=== PATIENT | male | born 1980 | race Caucasian/White ===

== ENCOUNTER 2020-05-06 09:25 | Day surgery (SDC) | payer OTHER, SELFPAY ==
[2020-04-30 11:29] VITALS: BMI 22.4
--- NOTE | 2020-05-03 08:40 | HO.ANESPROP2 ---
Documented by User: Jannet Peralta 05/03/20 08:44 HPI - Anesthesia Eval Consult details Narrative: 39yo M for Colonoscopy [facility] Past Medical History Medical History (Updated 04/30/20 @ 11:31 by Taina Jacinto) Hx of cold sores Surgical History Surgical History (Updated 04/30/20 @ 11:31 by Taina Jacinto) No significant past surgical history Social History Social History (Updated 04/30/20 @ 11:33 by Taina Jacinot) Alcohol intake: current Smoking Status: Never smoker Use of substances other than those prescribed or required for medical reasons: Unknown Advance Directives Information Provided: No Meds Allergies Allergy/AdvReac Type Severity Reaction Status Date / Time No Known Allergies Allergy Verified 05/06/20 09:47 Home Medications Medication Instructions Recorded Confirmed Type ibuprofen [Advil] 400 mg PO Q6H PRN 04/30/20 04/30/20 History multivitamin 1 tab PO DAILY 04/30/20 04/30/20 History valacyclovir 04/30/20 History Exam Exam Date and Time: May 03, 2020 0840 Height,Weight and Vital Signs: Height 6 ft Weight 74.843 kg Assessment and Plan Assessment Anesthesia Assessment: Chart Reviewed Documented by User: Tammie Burton 05/06/20 10:51 [facility] Past Medical History Medical History (Updated 04/30/20 @ 11:31 by Taina Jacinto) Hx of cold sores Surgical History Surgical History (Updated 04/30/20 @ 11:31 by Taina Jacinto) No significant past surgical history Social History Social History (Updated 04/30/20 @ 11:33 by Taina Jacinto) Alcohol intake: current Smoking Status: Never smoker Use of substances other than those prescribed or required for medical reasons: Unknown Advance Directives Information Provided: No Meds Allergies Allergy/AdvReac Type Severity Reaction Status Date / Time No Known Allergies Allergy Verified 05/06/20 09:47 Home Medications Medication Instructions Recorded Confirmed Type ibuprofen [Advil] 400 mg PO Q6H PRN 04/30/20 04/30/20 History multivitamin 1 tab PO DAILY 04/30/20 04/30/20 History valacyclovir 04/30/20 History Exam Airway Mallampati Class: II TM Dist: >3cm Neck ROM: Full Heart: RRR Lungs: CTA BL Assessment and Plan Assessment Anesthesia Assessment: Anesthesia Plan Discussed and Chart Reviewed Final Anesthetic Review NPO: Yes ASA Class: I Final Preanesthetic Review: No Changes in Pt Med Stat, Meds/Allgs Chart Reviewed and Consent Obtained/Reviewed Patient Risk: Intermediate Procedure Risk: Intermediate Anesthetic Plan Anesthetic Plan: MAC: Disposition: Standard PACU
[2020-05-06 10:01] VITALS: BP 133/70; PULSE 57; RESP 16; TEMP 36.9; O2SAT 98
[2020-05-06] MEDS: Lactated Ringers 1,000 ML 100 ML IVCONT (10:21)
[2020-05-06 11:50] VITALS: BP 92/44; PULSE 59; RESP 16; TEMP 36.3; O2SAT 97
--- NOTE | 2020-05-06 11:50 | PM.OP ---
Brief Operative Note Date of Service: 05/06/20 Pre-op diagnosis: Family history of colon cancer, Screening Post-op diagnosis: other (Normal exam) Procedure: Colonoscopy to the cecum and TI Surgeon: Nathen Park Anesthesia: MAC Estimated blood loss (mL): 0 Pathology: none sent Condition: stable Disposition: PACU
[2020-05-06 12:05] VITALS: BP 114/68; PULSE 50; RESP 16; TEMP 36.3; O2SAT 99
--- NOTE | 2020-05-06 12:14 | OP_ITS ---
SURGEON: Nathen Park MD INDICATIONS: The patient presents for evaluation of colorectal cancer screening and family history of colon cancer in his father in his mid 50s. Full consent has been obtained from him for this, including risks of bleeding and perforation. PREOPERATIVE DIAGNOSIS: POSTOPERATIVE DIAGNOSIS: PROCEDURE PERFORMED: Colonoscopy to the cecum and terminal ileum. ESTIMATED BLOOD LOSS: COMPLICATIONS: ANESTHESIA: Monitored anesthesia care. ASSISTANTS: SPECIMENS: PREOPERATIVE DIAGNOSES: Family history of colon cancer and colorectal cancer screening. POSTOPERATIVE DIAGNOSES: Family history of colon cancer and colorectal cancer screening, normal colonoscopy. DESCRIPTION OF PROCEDURE: The patient was placed in the left lateral decubitus position. The digital rectal exam revealed no abnormalities. The Olympus video pediatric colonoscope was entered into the rectum and advanced easily to the cecum. Once in the cecum, I did identify normal-appearing cecal pouch with appendiceal orifice and a normal-appearing ileocecal valve. The terminal ileum was cannulated and appeared normal. The scope was withdrawn back in the colon. The entire cecum and ileocecal valve appeared normal. The scope was slowly withdrawn assessing all mucosal surfaces carefully. Preparation was excellent. I did not visualize any sign of polyps, colitis, nor angiodysplasia. In the rectum, scope was retroflexed visualizing normal rectal mucosa, but no pathology. The scope was straightened and withdrawn from the patient. He tolerated the procedure well and was returned to recovery area in stable condition. IMPRESSION: Normal colonoscopy to the cecum and terminal ileum. PLAN: Given his family history, I would recommend a followup colonoscopy in 5 years for further screening. He will otherwise see me on a p.r.n. basis. This has been discussed with his . MD VLADIMIR Schmidt/DAVIDL / [id number]
== END 2020-05-06 12:42 | disposition home or self-care (01) ==
PROVIDERS: PCP Internal Medicine; Visit Provider Internal Medicine
PROC: 0DJD8ZZ Inspection of Lower Intestinal Tract, Via Natural or Artificial Opening Endoscopic (ICD-10-PCS; CPT 45378; principal; 2020-05-06 11:10)
DX: Z12.11 Encounter for screening for malignant neoplasm of colon (principal); Z80.0 Family history of malignant neoplasm of digestive organs
CPT/HCPCS: 45378

== ENCOUNTER 2021-01-07 10:40 | Outpatient (REF) | payer OTHER, SELFPAY ==
[2021-01-07 10:42] LABS: MANUAL DIFF FLAG NO
[2021-01-07 11:13] LABS: Basophils Percent Auto 0.6 % (0-2); Eosinophils Absolute Auto 0.2 X10*3/uL (0.0-0.4); Eosinophils Percent Auto 3.4 % (0-4); Hematocrit 42.3 % (42-52); Imm Gran Abs Auto 0.01 X10*3/uL (0.00-0.03); Imm Gran Pct Auto 0.2 % (0.0-0.4); Lymphocytes Absolute Auto 1.4 X10*3/uL (1.2-4.9); Lymphocytes Percent Auto 29.2 % (20-40); Mean Corpuscular HGB Conc 35.5 g/dl (31.0-36.0); Mean Corpuscular Hemoglobin 30.3 pg (27.0-33.0); Mean Corpuscular Volume 85.5 fL (80-98); Mean Platelet Volume 10.6 fL (9.4-12.4); Monocytes Absolute Auto 0.4 X10*3/uL (0.1-1.2); Monocytes Percent Auto 7.5 % (2-11); Neutrophils Absolute Auto 2.8 X10*3/uL (2.0-8.3); Neutrophils Percent Auto 59.1 % (45-73); Platelet Count 218 X10*3/uL (160-400); Red Blood Count 4.95 X10*6/uL (4.60-5.80); Red Cell Distribution Width 11.9 % (11.0-16.0); White Blood Count 4.7 X10*3/uL (4.8-10.8)
[2021-01-07 11:33] LABS: Alanine Aminotransferase 29 U/L (0-40); Albumin Level 4.3 g/dL (3.5-5.0); Alkaline Phosphatase 55 U/L (39-117); Anion Gap 9 (12-20); Aspartate Amino Transferase 18 U/L (5-37); Bilirubin Total 0.9 mg/dL (0.0-1.0); Blood Urea Nitrogen 17 mg/dL (9-16); Carbon Dioxide 28 mmol/L (22-29); Chloride 106 mmol/L (96-108); Cholesterol 168 mg/dL; Estimated Glomerular Filt Rate > 60; Glucose Fasting 107 mg/dL (60-99); HDL Cholesterol 45 mg/dL; LDL Cholesterol Calculated 90 mg/dl; Potassium 4.2 mmol/L (3.3-5.1); Sodium 139 mmol/L (135-145); Total Protein 6.8 g/dL (6.5-8.0); Triglycerides 168 mg/dL
[2021-01-07 11:43] LABS: Appearance Urine CLEAR; Color Urine YELLOW; Glucose Urine UA NEG (NEG); Leukocyte Esterase Urine NEG (NEG); Nitrite Urine NEG (NEG); Urine Blood NEG (NEG); Urine Ketones NEG (NEG); Urine Protein NEG (NEG-TRACE)
[2021-01-07 11:52] LABS: PSA,Total (Free>4and<10) 0.48 ng/mL (0.00-4.00)
== END 2021-01-07 10:41 | disposition home or self-care (01) ==
LOC: HO.LNP 10:40
PROVIDERS: Visit Provider Internal Medicine
DX: Z00.00 Encounter for general adult medical examination without abnormal findings (principal); Z12.5 Encounter for screening for malignant neoplasm of prostate; R80.9 Proteinuria, unspecified
CPT/HCPCS: 80053; 80061; 81003; 84153; 85025

== ENCOUNTER 2022-01-09 12:33 | Outpatient (REF) | payer BC, SELFPAY ==
[2022-01-09 12:40] LABS: MANUAL DIFF FLAG NO
[2022-01-09 12:44] LABS: Appearance Urine Clear; Basophils Percent Auto 0.8 % (0-2); Color Urine Yellow; Eosinophils Absolute Auto 0.2 X10*3/uL (0.0-0.4); Glucose Urine UA Negative (Negative); Hematocrit 45.3 % (42.0-52.0); Hemoglobin 15.7 g/dl (14.0-18.0); Imm Gran Abs Auto 0.01 X10*3/uL (0.00-0.03); Imm Gran Pct Auto 0.2 % (0.0-0.4); Leukocyte Esterase Urine Negative (Negative); Lymphocytes Absolute Auto 1.8 X10*3/uL (1.2-4.9); Lymphocytes Percent Auto 36.5 % (20-40); Mean Corpuscular HGB Conc 34.7 g/dl (31.0-36.0); Mean Corpuscular Hemoglobin 30.1 pg (27.0-33.0); Mean Corpuscular Volume 86.8 fL (80.0-98.0); Monocytes Absolute Auto 0.5 X10*3/uL (0.1-1.2); Neutrophils Absolute Auto 2.5 x10*3/uL (2.0-8.3); Neutrophils Percent Auto 49.5 % (45-73); Nitrite Urine Negative (Negative); PH 7.5 (5.0-9.0); Platelet Count 251 X10*3/uL (160-400); Red Blood Count 5.22 X10*6/uL (4.60-5.80); Red Cell Distribution Width 11.9 % (11.0-16.0); Urine Blood Negative (Negative); Urine Ketones Negative (Negative); Urine Protein Negative (Neg-Trace)
[2022-01-09 12:47] LABS: Bacteria Urine None Seen (None Seen); Hyaline Casts Urine 0-2 /LPF (0-2); RBC Urine 0-2 /HPF (0-2); Squamous Epithelial Cell Urine 0-2 /HPF (0-2); WBC Urine 0-5 /HPF (0-5)
[2022-01-09 12:57] LABS: Alanine Aminotransferase 37 U/L (0-40); Albumin Level 4.5 g/dL (3.5-5.0); Alkaline Phosphatase 60 U/L (39-117); Anion Gap 15 (12-20); Aspartate Amino Transferase 29 U/L (5-37); Bilirubin Total 1.3 mg/dL (0.0-1.0); Blood Urea Nitrogen 20 mg/dL (9-16); Calcium 9.4 mg/dL (8.4-10.2); Carbon Dioxide 28 mmol/L (22-29); Chloride 103 mmol/L (96-108); Cholesterol 174 mg/dL; Estimated Glomerular Filt Rate > 60; Glucose Fasting 101 mg/dL (60-99); HDL Cholesterol 45 mg/dL; LDL Cholesterol Calculated 102 mg/dl; Potassium 4.5 mmol/L (3.3-5.1); Sodium 141 mmol/L (135-145); Total Protein 7.1 g/dL (6.5-8.0); Triglycerides 137 mg/dL
[2022-01-09 13:16] LABS: PSA,Total (Free>4and<10) 0.38 ng/mL (0.00-4.00)
== END 2022-01-09 12:34 | disposition home or self-care (01) ==
LOC: HO.LNP 12:33
PROVIDERS: Visit Provider Internal Medicine
DX: Z00.00 Encounter for general adult medical examination without abnormal findings (principal); Z12.5 Encounter for screening for malignant neoplasm of prostate
CPT/HCPCS: 80053; 80061; 81001; 84153; 85025

== ENCOUNTER 2023-01-25 10:53 | Outpatient (REF) | payer BC, SELFPAY ==
[2023-01-25 10:57] LABS: MANUAL DIFF FLAG NO
[2023-01-25 11:12] LABS: Basophils Percent Auto 0.7 % (0-2); Eosinophils Absolute Auto 0.1 X10*3/uL (0.0-0.4); Eosinophils Percent Auto 2.2 % (0-4); Hemoglobin 15.7 g/dl (14.0-18.0); Imm Gran Abs Auto 0.01 X10*3/uL (0.00-0.03); Imm Gran Pct Auto 0.2 % (0.0-0.4); Lymphocytes Absolute Auto 1.4 X10*3/uL (1.2-4.9); Lymphocytes Percent Auto 24.8 % (20-40); Mean Corpuscular HGB Conc 34.1 g/dl (31.0-36.0); Mean Corpuscular Hemoglobin 29.5 pg (27.0-33.0); Mean Corpuscular Volume 86.3 fL (80.0-98.0); Mean Platelet Volume 10.8 fL (9.4-12.4); Monocytes Absolute Auto 0.5 X10*3/uL (0.1-1.2); Monocytes Percent Auto 9.2 % (2-11); Neutrophils Absolute Auto 3.4 x10*3/uL (2.0-8.3); Neutrophils Percent Auto 62.9 % (45-73); Platelet Count 220 X10*3/uL (160-400); Red Blood Count 5.33 X10*6/uL (4.60-5.80); Red Cell Distribution Width 11.9 % (11.0-16.0); White Blood Count 5.4 X10*3/uL (4.8-10.8)
[2023-01-25 11:13] LABS: Appearance Urine Clear; Color Urine Yellow; Glucose Urine UA Negative (Negative); Leukocyte Esterase Urine Negative (Negative); Nitrite Urine Negative (Negative); Specific Gravity - Urine 1.015 (1.005-1.025); Urine Blood Negative (Negative); Urine Ketones Negative (Negative); Urine Protein Negative (Neg-Trace)
[2023-01-25 11:15] LABS: Bacteria Urine None Seen (None Seen); Hyaline Casts Urine 0-2 /LPF (0-2); RBC Urine 0-2 /HPF (0-2); Squamous Epithelial Cell Urine 0-2 /HPF (0-2); WBC Urine 0-5 /HPF (0-5)
[2023-01-25 11:38] LABS: Alanine Aminotransferase 33 U/L (0-40); Albumin Level 4.5 g/dL (3.5-5.0); Alkaline Phosphatase 64 U/L (39-117); Anion Gap 13 (12-20); Aspartate Amino Transferase 24 U/L (5-37); Bilirubin Total 1.2 mg/dL (0.0-1.0); Blood Urea Nitrogen 15 mg/dL (9-16); Calcium 9.7 mg/dL (8.4-10.2); Carbon Dioxide 28 mmol/L (22-29); Chloride 104 mmol/L (96-108); Cholesterol 172 mg/dL (<200); Estimated Glomerular Filt Rate > 60; Glucose Fasting 105 mg/dL (60-99); HDL Cholesterol 51 mg/dL (>40); LDL Cholesterol Calculated 96 mg/dL (<100); Potassium 4.5 mmol/L (3.3-5.1); Sodium 140 mmol/L (135-145); Total Protein 7.2 g/dL (6.5-8.0); Triglycerides 128 mg/dL (<150)
[2023-01-25 11:48] LABS: PSA,Total (Free>4and<10) 0.48 ng/mL (0.00-4.00)
== END 2023-01-25 10:54 | disposition home or self-care (01) ==
LOC: HO.LNP 10:53
PROVIDERS: Visit Provider Internal Medicine
DX: Z00.00 Encounter for general adult medical examination without abnormal findings (principal); Z12.5 Encounter for screening for malignant neoplasm of prostate; Z20.2 Contact with and (suspected) exposure to infections with a predominantly sexual mode of transmission
CPT/HCPCS: 80053; 80061; 81001; 84153; 85025

== ENCOUNTER 2024-02-07 11:33 | Outpatient (REF) | payer BC, SELFPAY ==
[2024-02-07 11:35] LABS: MANUAL DIFF FLAG NO
[2024-02-07 11:52] LABS: Basophils Percent Auto 0.8 % (0-2); Eosinophils Absolute Auto 0.2 X10*3/uL (0.0-0.4); Eosinophils Percent Auto 3.4 % (0-4); Hematocrit 45.1 % (42.0-52.0); Hemoglobin 15.5 g/dl (14.0-18.0); Imm Gran Abs Auto 0.01 X10*3/uL (0.00-0.03); Imm Gran Pct Auto 0.2 % (0.0-0.4); Lymphocytes Absolute Auto 1.6 X10*3/uL (1.2-4.9); Lymphocytes Percent Auto 32.1 % (20-40); Mean Corpuscular HGB Conc 34.4 g/dl (31.0-36.0); Mean Corpuscular Hemoglobin 29.9 pg (27.0-33.0); Mean Corpuscular Volume 86.9 fL (80.0-98.0); Mean Platelet Volume 10.7 fL (9.4-12.4); Monocytes Absolute Auto 0.4 X10*3/uL (0.1-1.2); Monocytes Percent Auto 7.9 % (2-11); Neutrophils Absolute Auto 2.8 x10*3/uL (2.0-8.3); Neutrophils Percent Auto 55.6 % (45-73); Platelet Count 244 X10*3/uL (160-400); Red Blood Count 5.19 X10*6/uL (4.60-5.80); Red Cell Distribution Width 12.1 % (11.0-16.0)
[2024-02-07 11:56] LABS: Appearance Urine Clear; Color Urine Yellow; Glucose Urine UA Negative (Negative); Leukocyte Esterase Urine Negative (Negative); Nitrite Urine Negative (Negative); PH 5.5 (5.0-9.0); Specific Gravity - Urine 1.015 (1.005-1.025); Urine Blood Negative (Negative); Urine Ketones Negative (Negative); Urine Protein Negative (Neg-Trace)
[2024-02-07 12:02] LABS: Bacteria Urine None Seen (None Seen); Hyaline Casts Urine 0-2 /LPF (0-2); RBC Urine 0-2 /HPF (0-2); Squamous Epithelial Cell Urine 0-2 /HPF (0-2); WBC Urine 0-5 /HPF (0-5)
[2024-02-07 13:05] LABS: PSA,Total (Free>4and<10) 0.48 ng/mL (0.00-4.00)
[2024-02-07 13:16] LABS: Alanine Aminotransferase 41 U/L (0-40); Albumin Level 4.4 g/dL (3.5-5.0); Alkaline Phosphatase 64 U/L (39-117); Anion Gap 12 (12-20); Aspartate Amino Transferase 36 U/L (5-37); Bilirubin Total 0.7 mg/dL (0.0-1.0); Blood Urea Nitrogen 17 mg/dL (9-16); Calcium 9.5 mg/dL (8.4-10.2); Carbon Dioxide 28 mmol/L (22-29); Chloride 105 mmol/L (96-108); Cholesterol 188 mg/dL (<200); Estimated Glomerular Filt Rate > 60; Glucose Fasting 103 mg/dL (60-99); HDL Cholesterol 55 mg/dL (>40); LDL Cholesterol Calculated 109 mg/dL (<100); Potassium 4.4 mmol/L (3.3-5.1); Sodium 141 mmol/L (135-145); Triglycerides 120 mg/dL (<150)
== END 2024-02-07 11:34 | disposition home or self-care (01) ==
LOC: HO.LNP 11:33
PROVIDERS: Visit Provider Internal Medicine
DX: Z00.00 Encounter for general adult medical examination without abnormal findings (principal); Z12.5 Encounter for screening for malignant neoplasm of prostate
CPT/HCPCS: 80053; 80061; 81001; 84153; 85025

== ENCOUNTER 2025-02-09 12:30 | Outpatient (REF) | payer BC, SELFPAY ==
--- OUTSIDE RECORDS SUMMARY | 2024-02-07 02:00 | XMS_ITS ---
Author Organization Lj Ledezma MD Address [address] [place], [place] [id number] Care Team Providers Care [employer] Supervisor Name Role Phone Lj Ledezma Primary Care Provider Results Component Value Reference Range Notes Complete Blood Count Auto Di ff Reviewed date:02/07/2024 05:57:01 PM Interpretation: Performing Lab:[facility], [address] [place] [phone] Notes/Report: White Blood Count 5.0 4.8-10.8 X10*3/uL Red Blood Count 5.19 4.60-5.80 X10*6/uL Hemoglobin 15.5 14.0-18.0 g/dl Hematocrit 45.1 42.0-52.0 % Mean Corpuscular Volume 86.9 80.0-98.0 fL Mean Corpuscular Hemoglobin 29.9 27.0-33.0 pg Mean Corpuscular HGB Conc 34.4 31.0-36.0 g/dl Red Cell Distribution Width 12.1 11.0-16.0 % Platelet Count 244 160-400 X10*3/uL Mean Platelet Volume 10.7 9.4-12.4 fL Neutrophils Percent Auto 55.6 45-73 % Imm Gran Pct Auto 0.2 0.0-0.4 % Lymphocytes Percent Auto 32.1 20-40 % Monocytes Percent Auto 7.9 2-11 % Eosinophils Percent Auto 3.4 0-4 % Basophils Percent Auto 0.8 0-2 % NRBC Pct Auto 0.0 0.0-0.2 /100WBC Neutrophils Absolute Auto 2.8 2.0-8.3 x10*3/u L Imm Gran Abs Auto 0.01 0.00-0.03 X10*3/uL Lymphocytes Absolute Auto 1.6 1.2-4.9 X10*3/u L Monocytes Absolute Auto 0.4 0.1-1.2 X10*3/uL Eosinophils Absolute Auto 0.2 0.0-0.4 X10*3/u L Basophils Absolute Auto 0.0 0.0-0.2 X10*3/uL NRBC Abs Auto 0.000 0.0-0.012 X10*3/uL Comprehensive [place]. Panel Fa st Reviewed date:02/07/2024 05:56:26 PM Interpretation: Performing Lab:[facility], [address] [place] [phone] Notes/Report: Sodium 141 135-145 mmol/L Potassium 4.4 3.3-5.1 mmol/L Chloride 105 96-108 mmol/L Carbon Dioxide 28 22-29 mmol/L Anion Gap 12 12-20 Blood Urea Nitrogen 17 9-16 mg/dL Creatinine 1.03 0.5-1.4 mg/dL Estimated Glomerular Filt Rate > 60 NOTE: For -French individuals, multiply the result by 1.210. Chronic Kidney Disease: Estimated GFR < 60 mL/min/1.73m2 Severe Kidney Disease: Estimated GFR < 15 mL/min/1.73m2 Glucose Fasting 103 60-99 mg/dL A fasting glucose from 100-125 mg/dl is considered impaired (pre-diabetes). Calcium 9.5 8.4-10.2 mg/dL Bilirubin Total 0.7 0.0-1.0 mg/dL Aspartate Amino Transferase 36 5-37 U/L Alanine Aminotransferase 41 0-40 U/L Total Protein 7.0 6.5-8.0 g/dL Albumin Level 4.4 3.5-5.0 g/dL Alkaline Phosphatase 64 39-117 U/L Lipid Panel Reviewed date:02/07/2024 05:49:08 PM Interpretation: Performing Lab:[facility], [address] [place] [phone] Notes/Report: Triglycerides 120 <150 mg/dL Desirable Triglyceride: less than 150 mg/dL Borderline High Triglyceride 150-199 mg/dL High Triglyceride: 200-499 mg/dL Very High Triglyceride: greater than or equal to 5OO mg/dL Cholesterol 188 <200 mg/dL Desirable Cholesterol: less than 200 mg/dL Borderline High Cholesterol: 200-239 mg/dL High Cholesterol: greater than 239 mg/dL LDL Cholesterol Calculated 109 <100 mg/dL Desirable LDL: less than 100 mg/dL Near Optimal/Above Optimal LDL: 110-129 mg/dL Borderline High LDL: 130-159 mg/dL High LDL: 160-189 mg/dL Very High LDL: greater than or equal to 190 mg/dL HDL Cholesterol 55 >40 mg/dL Desirable HDL: greater than 40 mg/dL Note: This HDL assay may give artificially low results in patients with liver disease. PSA,Total (Free>4and<10) Reviewed date:02/07/2024 03:00:37 PM Interpretation: Performing Lab:[facility], [address] [place] [phone] Notes/Report: PSA,Total (Free>4and<10) 0.48 0.00-4.00 ng/mL A Free PSA was not performed: The percentage of Free PSA can be used to enhance the differentiation of prostate cancer from benign prostatic disease in subjects whose PSA levels are between 4.0 and 10.0 ng/mL. For subjects whose PSA levels are below 4.0 or above 10.0 ng/mL, the risk of prostate cancer is determined on the basis of the PSA alone. Therefore the % Free PSA is recommended only for those subjects whose PSA levels are between 4.0 and 10.0 ng/mL. PSA methodology: Rojas Alinity i Chemiluminescent Microparticle Immunoassay (CMIA) UA ClnCatch+Micro w/rflx Cul t Reviewed date:02/07/2024 01:04:59 PM Interpretation: Performing Lab:[facility], [address] [place] [phone] Notes/Report: Urine, Clean Catch Color Urine Yellow Appearance Urine Clear PH 5.5 5.0-9.0 Glucose Urine UA Negative Negative mg/dL Urine Blood Negative Negative Specific [place] - Urine 1.015 1.005-1.025 Urine Protein Negative Neg-Trace mg/dL Urine Ketones Negative Negative mg/dL Nitrite Urine Negative Negative Leukocyte Esterase Urine Negative Negative RBC Urine 0-2 0-2 /HPF WBC Urine 0-5 0-5 /HPF Squamous Epithelial Cell Urine 0-2 0-2 /HPF Bacteria Urine None Seen None Seen Hyaline Casts Urine 0-2 0-2 /LPF REASON FOR VISIT fasting labs Immunizations Vaccine Route Administration Date Status Comme nts Fluarix Quadrivalent - 150 Unknown 02/07/2024 Refused Encounters Encounter Location Date Provider Diagnosis Lj Ledezma MD [address] [place] [phone] 02/07/2024 Lj Ledezma Blood tests for routine general physical examination Z00.00 Assessments Encounter Date Diagnosis (ICD Code) Assessment Notes Treatment Notes Treatment Clinical Notes Section Notes 02/07/2024 Blood tests for routine general physical examination (ICD-10 - Z00.00) Plan Of Treatment Next Appt Details Provider Name:Lj Butler ier, 02/15/2025 08:30:00 AM, [address], [address], [place], [place], [phone], Progress Notes * DEMOND ACOSTA RDOB:12/1980 (44 yo M)Acc No.[id number]:02/07/2024 Progress Note Patient: DEMOND THOMAS Provider: Yancy Ledezma MD :1980 A ge:43 Y S ex:Male Date:02/07/2024 Address:[address] [place] [address], [place] [facility] Subjective: * Chief Complaints: * 1 . Fasting labs. * Medical History: Objective: * Vitals: Assessment: * Assessment: 1. B lood tests for routine general physical examination - Z00.00 (Primary) Plan: * Treatment: * Immunizations: Fluarix Quadrivalent - 150 (Not administered - Refused: Patient decision) * Procedure Codes: 3 6415 VENIPUNCT, ROUTINE* * * The named appointment provid er may or may not be the originator of this progress note, and it is not deemed complete until electronically signed by the appointment provider. Sign off status: Pending * Provider: Yancy Ledezma MD Date: 04/08/2023 Generated for Eduard Rosas/Favio on: 04/11/2024 02:41 PM EST
--- OUTSIDE RECORDS SUMMARY | 2024-02-10 03:00 | XMS_ITS ---
Author Organization Lj Ledezma MD Address [address] [place], [place] [id number] Care Team Providers Care Armed Security Officer Name Role Phone Lj Ledezma Primary Care Provider [phone] Allergies No Known Allergies Results Component Value Reference Range Notes Occult Blood, Stool, Guaiac Reviewed date:02/10/2024 11:27:52 AM Interpretation:Negative Performing Lab: Notes/Report: Negative Occult Blood, Stool, Guaiac Neg REASON FOR VISIT annual visit Medications Medication SIG (Take, Route, Fr equency, Duration) Notes Start Date End Date Status Drysol 20 % 1 application at bed time Externally daily until sweating stops for 30 days 01/19/2022 Activ e valACYclovir HCl 1 GM TAKE 2 TABLETS BY MOUTH EVERY 12 HOURS FOR 1 DAY for 1 Active Social History Tobacco Use: Social History Observation Description Date Details (start date - stop date) Never Smoker NA - NA Tobacco Use/Smoking Question Answer Notes Patient is a nonsmoker Additional Findings: Tobacco Non-User Cu rrent non-smoker, currently using no form of tobacco Alcohol Screen Question Answer Notes Did you have a drink contain ing alcohol in the past year? Yes How often did you have a dri nk containing alcohol in the past year? Monthly or less (1 point) How many drinks did you have on a typical day when you were drinking in the past year? 1 or 2 drinks (0 point) How often did you have 6 or more drinks on one occasion in the past year? Never (0 point) Points 1 Interpretation Negative Vital Signs Blood pressure systolic 124 mm Hg 02/10/20 24 Blood pressure diastolic 72 mm Hg 024 Height 71.5 in 02/10/2024 Weight 192 lbs 02/10/2024 BMI 26.40 kg/m2 02/10/2024 weight is down 2 pounds [facility] summer 02-01-23 Encounters Encounter Location Date Provider Diagnosis Lj Ledezma MD [address] [place], [place] [phone] 02/10/2024 Lj Ledezma Annual physical exam Z00.00 ; Elevated blood sugar R73.9 ; Colon cancer screening Z12.11 and Depression screening Z13.31 Assessments Encounter Date Diagnosis (ICD Code) Assessment Notes Treatment Notes Treatment Clinical Notes Section Notes 02/10/2024 Annual physical exam (ICD-10 - Z00.00) labs reviewed and discused with patient 02/10/2024 Elevated blood sugar (ICD-10 - R73.9) maintain a good weioght and contiue with exercise 02/10/2024 Colon cancer screening (ICD-10 - Z12.11) guaiac negative 02/10/2024 Depression screening (ICD-10 - Z13.31) negative screen Plan Of Treatment Treatment Notes Assessment Notes Annual physical exam labs reviewed and d iscused with patient Elevated blood sugar maintain a good tiarra oght and contiue with exercise Colon cancer screening guaiac negative Depression screening negative screen Next Appt Details Provider Name:Lj Butler ier, 02/15/2025 08:30:00 AM, [address], [address], [place], [place], [id number], Progress Notes * DEMOND ACOSTA RDOB:12/1980 (43 yo M)Acc No.[id number]:02/10/2024 Progress Notes Patient: DEMOND THOMAS Provider: Yancy Ledezma MD :1980 A ge:43 Y S ex:Male Date:02/10/2024 Address:[address] [place] [address] [facility] [place], [id number] Subjective: * Chief Complaints: * A nnual visit * HPI: D epression Screening: PHQ-9 L ittle interest or pleasure in doing things N ot at all, F eeling down, depressed, or hopeless N ot at all, T rouble falling or staying asleep, or sleeping too much N ot at all, F eeling tired or having little energy N ot at all, P oor appetite or overeating N ot at all, F eeling bad about yourself or that you are a failure, or have let yourself or your family down N ot at all, T rouble concentrating on things, such as reading the newspaper or watching television N ot at all, M oving or speaking so slowly that other people could have noticed; or the opposite, being so fidgety or restless that you have been moving around a lot more than usual N ot at all, T houghts that you would be better off or of hurting yourself in some way N ot at all, T otal Score 0 . I nterpretation and Intervention D epression Screening Findings N egative, F ollow-Up for Depression : review of PHQ-9 found negative result, no follow-up needed. C ommunication Needs: Communication Needs D oes the patient have a hearing impairment N o, D oes the patient have a vision impairment? N o, D oes the patient have a cognition impairment? N o. S AYAAN Questions: SDOH Questions I n the past year have you been worried about losing housing? N o, I n the past year have you or any family members you live with been unable to get any of the following when it was really needed? Check all that apply: N one. S ymptom(s): patient is a 43 yo male here for annual visit with reiew of recent labs and follow up of chronic issues. * ROS: G eneral/Constitutional: Patient denies f atigue , headache. C hange in appetite?denies. C hills d enies. F ever d enies. O phthalmologic: Blurred vision d enies. D ischarge d enies. P ain d enies. E NT: Patient denies d ecreased sense of smell , any loss of taste , sore throat. D ecreased hearing d enies. S ore throat d enies. S wollen glands d enies. E ndocrine: Cold intolerance d enies. E xcessive thirst d enies. H eat intolerance d enies. W eight loss d enies. R espiratory: Cough d enies. S hortness of breath at rest d enies. S hortness of breath with exertion d enies. W heezing d enies. C ardiovascular: Chest pain at rest d enies. C hest pain with exertion?denies. I rregular heartbeat d enies. S hortness of breath d enies. ? G astrointestinal: Abdominal pain d enies. C hange in bowel habits d enies. D iarrhea d enies. N ausea d enies. R ectal bleeding d enies. V omiting d enies . G enitourinary: Blood in urine d enies. D ifficulty urinating d enies. F requent urination d enies. M usculoskeletal: Patient denies m uscle aches. P ainful joints d enies. W eakness d enies. P eripheral Vascular: Patient denies r ed and blue toes. S kin: Dry skin d enies. I tching d enies. D enies?Mole(s), changes in moles, new moles or any lesions of concern. D enies P hotosensitivity. R leo d enies. N eurologic: Dizziness d enies. F ainting d enies. H eadache?denies. * Medical History: * Surgical History: * Hospitalization/Major Diagno stic Procedure: * Family History: F ather: 65 yrs, family history unknown . M other: alive 71 yrs, family history unknown . 1 brother(s) . 3 son(s) . . Denies mental health/substance abuse family history Father colon cancer Mothr healthy, Denies mental health/substance abuse family history, No pertinent family medical history. * Social History: T obacco Use: T obacco Use/Smoking P atient is a n onsmoker, A dditional Findings: Tobacco Non-User C urrent non-smoker, currently using no form of tobacco. D rugs/Alcohol: A lcohol Screen D id you have a drink containing alcohol in the past year? Y es, H ow often did you have a drink containing alcohol in the past year? M onthly or less (1 point), H ow many drinks did you have on a typical day when you were drinking in the past year? 1 or 2 drinks (0 point), H ow often did you have 6 or more drinks on one occasion in the past year? N ever (0 point), P oints 1 , I nterpretation N egative. M iscellaneous: C affeine: yes, frequency:, 1-2 cups per day. Children: yes. no Community involvements. Exercise: yes, run light weights half hour 3-4 times a week. Housing: owning. Living with: spouse, family. Marital status: . Occupation: works full-time. Pets: none. no Travel outside of the [place]. * Medications: T akingDrysol 20 % Solution 1 application at bedtime Externally daily until sweating stopsvalACYclovir HCl 1 GM Tablet TAKE 2 TABLETS BY MOUTH EVERY 12 HOURS FOR 1 DAY Medication List reviewed and reconciled with the patientTaking Drysol 20 % Solution 1 application at bedtime Externally daily until sweating stopsTaking valACYclovir HCl 1 GM Tablet TAKE 2 TABLETS BY MOUTH EVERY 12 HOURS FOR 1 DAY Medication List reviewed and reconciled with the patient * Allergies: N .K.D.A.yes[Allergies Verified] Objective: * Vitals: H t: 71.5, Wt:192, BMI:26.40, BP:124/72 weight is down 2 pounds since 02-01-23. * P ast Orders: L ab:Lipid Panel (Order Date - 02/07/2024) (Collection Date - 02/07/2024) Value Reference Range Triglycerides 120 <150 - mg/dL Cholesterol 188 <200 - mg/dL LDL Cholesterol Calculated 109 H <100 - mg/dL HDL Cholesterol 55 >40 - mg/dL L ab:PSA,Total (Free>4and<10) (Order Date - 02/07/2024) (Collection Date - 02/07/2024) Value Reference Range PSA,Total (Free>4and<10) 0.48 0.00-4.00 - ng/ mL L ab:UA ClnCatch+Micro w/rflx Cult (Order Date - 02/07/2024) (Collection Date - 02/07/2024) Value Reference Range Color Urine Yellow - Appearance Urine Clear - PH 5.5 5.0-9.0 - Glucose Urine UA Negative Negative - mg/dL Urine Blood Negative Negative - Specific [place] - Urine 1.015 1.005-1.025 - Urine Protein Negative Neg-Trace - mg/dL Urine Ketones Negative Negative - mg/dL Nitrite Urine Negative Negative - Leukocyte Esterase Urine Negative Negative - RBC Urine 0-2 0-2 - /HPF WBC Urine 0-5 0-5 - /HPF Squamous Epithelial Cell Urine 0-2 0-2 - /HP F Bacteria Urine None Seen None Seen - Hyaline Casts Urine 0-2 0-2 - /LPF L ab:Complete Blood Count Auto Diff (Order Date - 02/07/2024) (Collection Date - 02/07/2024) Value Reference Range White Blood Count 5.0 4.8-10.8 - X10*3/uL Red Blood Count 5.19 4.60-5.80 - X10*6/uL Hemoglobin 15.5 14.0-18.0 - g/dl Hematocrit 45.1 42.0-52.0 - % Mean Corpuscular Volume 86.9 80.0-98.0 - fL Mean Corpuscular Hemoglobin 29.9 27.0-33.0 - pg Mean Corpuscular HGB Conc 34.4 31.0-36.0 - g/ dl Red Cell Distribution Width 12.1 11.0-16.0 - % Platelet Count 244 160-400 - X10*3/uL Mean Platelet Volume 10.7 9.4-12.4 - fL Neutrophils Percent Auto 55.6 45-73 - % Imm Gran Pct Auto 0.2 0.0-0.4 - % Lymphocytes Percent Auto 32.1 20-40 - % Monocytes Percent Auto 7.9 2-11 - % Eosinophils Percent Auto 3.4 0-4 - % Basophils Percent Auto 0.8 0-2 - % NRBC Pct Auto 0.0 0.0-0.2 - /100WBC Neutrophils Absolute Auto 2.8 2.0-8.3 - x10* 3/uL Imm Gran Abs Auto 0.01 0.00-0.03 - X10*3/uL Lymphocytes Absolute Auto 1.6 1.2-4.9 - X10* 3/uL Monocytes Absolute Auto 0.4 0.1-1.2 - X10*3/ uL Eosinophils Absolute Auto 0.2 0.0-0.4 - X10* 3/uL Basophils Absolute Auto 0.0 0.0-0.2 - X10*3/ uL NRBC Abs Auto 0.000 0.0-0.012 - X10*3/uL L ab:Comprehensive [place]. Panel Fast (Order Date - 02/07/2024) (Collection Date - 02/07/2024) Value Reference Range Sodium 141 135-145 - mmol/L Bilirubin Total 0.7 0.0-1.0 - mg/dL Aspartate Amino Transferase 36 5-37 - U/L Alanine Aminotransferase 41 H 0-40 - U/L Total Protein 7.0 6.5-8.0 - g/dL Albumin Level 4.4 3.5-5.0 - g/dL Alkaline Phosphatase 64 39-117 - U/L Potassium 4.4 3.3-5.1 - mmol/L Chloride 105 96-108 - mmol/L Carbon Dioxide 28 22-29 - mmol/L Anion Gap 12 12-20 - Blood Urea Nitrogen 17 H 9-16 - mg/dL Creatinine 1.03 0.5-1.4 - mg/dL Estimated Glomerular Filt Rate > 60 - Glucose Fasting 103 H 60-99 - mg/dL Calcium 9.5 8.4-10.2 - mg/dL * Examination: G eneral Examination: GENERAL APPEARANCE: w ell developed, well nourished, in no acute distress. HEAD: n ormocephalic, atraumatic. EYES: p upils equal, round, reactive to light and accommodation, sclera non-icteric. EARS: n ormal. ORAL CAVITY: m ucosa moist. THROAT: c lear. NECK/THYROID: n jose supple, full range of motion, no cervical lymphadenopathy, no bruits. SKIN: w arm and dry, no suspicious lesions. HEART: r egular rate and rhythm, S1, S2 normal, no murmurs.? LUNGS: c lear to auscultation bilaterally. ABDOMEN: s oft, nontender, nondistended, bowel sounds present, normal, no organomegaly , no masses palpable. RECTAL EXAM: n ormal tone, no external hemorrhoids, no masses palpable, prostate normal, stool guaiac negative. MALE GENITOURINARY: c ircumcised , testes descended bilaterally , no testicular mass. EXTREMITIES: n o clubbing, cyanosis, or edema. NEUROLOGIC: n onfocal, motor strength normal upper and lower extremities, sensory exam intact. Assessment: * Assessment: 1. A nnual physical exam - Z00.00 (Primary) 2 . E levated blood sugar - R73.9 3 .?Colon cancer screening - Z12.11 4 . D epression screening - Z13.31 Plan: * Treatment: 2. E levated blood sugar Notes: maintain a good weioght and contiue with exercise 3. C olon cancer screening L AB: Occult Blood, Stool, Guaiac N egative Value Reference Range O ccult Blood, Stool, Guaiac Neg Notes: guaiac negative??4.?Depression screening? Notes: negative screen?? * Procedure Codes: 8 2270 TEST FOR BLOOD, FECES * Preventive Medicine: Counseling: C are goal follow-up plan: Luz conn for abnormal BMI provided?Yes, A thom Normal BMI Follow-up Yancy hamilton encouragement to exercise. * * Sign off status: Completed true * Provider: Yancy Ledezma MD Date: 04/11/2023 Generated for Eduard mcdonald/Hilda/Vannesasmitting on: 04/11/2024 02:41 PM EST History and Physical Notes * HPI (History of Present Illness) Category Sub-Category Detail Notes Category Not es Symptom(s) patient is a 43 yo male here for annual visit with reiew of recent labs and follow up of chronic issues. Depression Screening PHQ-9 Little inte rest or pleasure in doing things: Not at all Feeling down, depressed, or hopeless: No t at all Trouble falling or staying asleep, or sl eeping too much: Not at all Feeling tired or having little energy: N ot at all Poor appetite or overeating: Not at all Feeling bad about yourself o r that you are a failure, or have let yourself or your family down: Not at all Trouble concentrating on thi ngs, such as reading the newspaper or watching television: Not at all Moving or speaking so slowly that other people could have noticed; or the opposite, being so fidgety or restless that you have been moving around a lot more than usual: Not at all Thoughts that you would be b cesar off or of hurting yourself in some way: Not at all Total Score: 0 Interpretation and Intervention Depression Teresasummer emma Findings: Negative Follow-Up for Depression: : review of PH Q-9 found negative result, no follow-up needed SDOH Questions SDOH Questions In the past year have you been worried about losing housing?: No In the past year have you or any family members you live with been unable to get any of the following when it was really needed? Check all that apply:: None Communication Needs Communication Needs Does the patient have a hearing impairment: No Does the patient have a vision impairmen t?: No Does the patient have a cognition impair ment?: No Examination Category Sub-Category Detail Notes Category Not es General Examination GENERAL APPEARANCE: well dev eloped, well nourished, in no acute distress HEAD: normocephalic, atrau matic EYES: pupils equal, round, reactive to light and accommodation, sclera non-icteric EARS: normal THROAT: clear NECK/THYROID: neck supple, full ra nge of motion, no cervical lymphadenopathy, no bruits HEART: regular rate and rhy thm, S1, S2 normal, no murmurs LUNGS: clear to auscultatio n bilaterally ABDOMEN: soft, nontender, non distended, bowel sounds present, normal, no organomegaly , no masses palpable NEUROLOGIC: nonfocal, motor stre ngth normal upper and lower extremities, sensory exam intact SKIN: warm and dry, no max picious lesions EXTREMITIES: no clubbing, cyanosi s, or edema MALE GENITOURINARY: circumcised , testes descended bilaterally , no testicular mass RECTAL EXAM: normal tone, no exte rnal hemorrhoids, no masses palpable, prostate normal, stool guaiac negative ORAL CAVITY: mucosa moist
--- OUTSIDE RECORDS SUMMARY | 2024-04-07 10:22 | XMS_ITS ---
Author Organization Lj Ledezma MD Address [address] [place] [phone] Care Team Providers Care Change Release Manager Name Role Phone DarienIrenan Primary Care Provider REASON FOR VISIT bill Encounters Encounter Location Date Provider Diagnosis Lj Ledezma MD [address] [place] [phone] 04/07/2024 Lj Ledezma Plan Of Treatment Next Appt Details Provider Name:Lj Butler ier, 02/15/2025 08:30:00 AM, [address], Suite [facility], [place], [place], [phone], Progress Notes * DEMOND ACOSTA RDOB:12/1980 (43 yo M)Acc No.[id number]:04/07/2024 Patient: DEMOND THOMAS :1980 A ge:43 Y S ex:Male Address:[address], [address] * true * Date: Generated for Printi ng/Faxing/eTransmitting on: 04/11/2024 02:41 PM EST
--- OUTSIDE RECORDS SUMMARY | 2024-04-28 06:08 | XMS_ITS ---
Author Organization Lj Ledezma MD Address [address] [place] [phone] Care Team Providers Care Employee Benefits Specialist Name Role Phone AaronIrena pann Primary Care Provider REASON FOR VISIT bal from 02-10-24 Encounters Encounter Location Date Provider Diagnosis Lj Ledezma MD [address] [facility] [address] [place] [phone] 04/28/2024 Lj Ledezma Plan Of Treatment Next Appt Details Provider Name:Lj Butler ier, 02/15/2025 08:30:00 AM, [address], [address] [facility], [place], [place], [phone], Progress Notes * DEMOND ACOSTA RDOB:12/1980 (43 yo M)Acc No.[id number]:04/28/2024 Patient: DEMOND THOMAS :1980 A ge:43 Y S ex:Male Address:[address], [address] * true * Date: Generated for Printi ng/Faxing/eTransmitting on: 04/11/2024 02:40 PM EST
--- OUTSIDE RECORDS SUMMARY | 2025-02-09 02:00 | XMS_ITS ---
Author Organization Lj Ledezma MD Address [address] [place], [place] [phone] Care Team Providers Care Shirt Bander Name Role Phone Lj Ledezma Primary Care Provider [phone] Results Component Value Reference Range Notes Complete Blood Count Auto Di ff (Not yet reviewed by provider) Interpretation: Performing Lab:[facility], [address] [place] [phone] Notes/Report: White Blood Count 6.3 4.8-10.8 X10*3/uL Red Blood Count 5.15 4.60-5.80 X10*6/uL Hemoglobin 15.2 14.0-18.0 g/dl Hematocrit 44.0 42.0-52.0 % Mean Corpuscular Volume 85.4 80.0-98.0 fL Mean Corpuscular Hemoglobin 29.5 27.0-33.0 pg Mean Corpuscular HGB Conc 34.5 31.0-36.0 g/dl Red Cell Distribution Width 11.9 11.0-16.0 % Platelet Count 243 160-400 X10*3/uL Mean Platelet Volume 10.7 9.4-12.4 fL Neutrophils Percent Auto 58.3 45-73 % Imm Gran Pct Auto 0.2 0.0-0.4 % Lymphocytes Percent Auto 29.0 20-40 % Monocytes Percent Auto 9.1 2-11 % Eosinophils Percent Auto 2.4 0-4 % Basophils Percent Auto 1.0 0-2 % NRBC Pct Auto 0.0 0.0-0.2 /100WBC Neutrophils Absolute Auto 3.7 2.0-8.3 x10*3/u L Imm Gran Abs Auto 0.01 0.00-0.03 X10*3/uL Lymphocytes Absolute Auto 1.8 1.2-4.9 X10*3/u L Monocytes Absolute Auto 0.6 0.1-1.2 X10*3/uL Eosinophils Absolute Auto 0.2 0.0-0.4 X10*3/u L Basophils Absolute Auto 0.1 0.0-0.2 X10*3/uL NRBC Abs Auto 0.000 0.0-0.012 X10*3/uL Comprehensive [place]. Panel Fa (Not yet reviewed by provider) Interpretation: Performing Lab:[facility], [address] [place] [phone] Notes/Report: Sodium 139 135-145 mmol/L Potassium 4.4 3.3-5.1 mmol/L Chloride 103 96-108 mmol/L Carbon Dioxide 29 22-29 mmol/L Anion Gap 11 12-20 Blood Urea Nitrogen 14 9-16 mg/dL Creatinine 1.06 0.5-1.4 mg/dL Estimated Glomerular Filt Rate > 60 Chronic Kidney Disease: Estimated GFR < 60 mL/min/1.73m2 Severe Kidney Disease: Estimated GFR < 15 mL/min/1.73m2 Glucose Fasting 98 60-99 mg/dL Calcium 9.1 8.4-10.2 mg/dL Bilirubin Total 1.4 0.0-1.0 mg/dL Aspartate Amino Transferase 36 5-37 U/L Alanine Aminotransferase 46 0-40 U/L Total Protein 6.8 6.5-8.0 g/dL Albumin Level 4.5 3.5-5.0 g/dL Alkaline Phosphatase 64 39-117 U/L Lipid Panel (Not yet reviewe d by provider) Interpretation: Performing Lab:[facility], [address] [place] [phone] Notes/Report: Triglycerides 170 <150 mg/dL Desirable Triglyceride: less than 150 mg/dL Borderline High Triglyceride 150-199 mg/dL High Triglyceride: 200-499 mg/dL Very High Triglyceride: greater than or equal to 5OO mg/dL Cholesterol 201 <200 mg/dL Desirable Cholesterol: less than 200 mg/dL Borderline High Cholesterol: 200-239 mg/dL High Cholesterol: greater than 239 mg/dL LDL Cholesterol Calculated 109 <100 mg/dL Desirable LDL: less than 100 mg/dL Near Optimal/Above Optimal LDL: 110-129 mg/dL Borderline High LDL: 130-159 mg/dL High LDL: 160-189 mg/dL Very High LDL: greater than or equal to 190 mg/dL HDL Cholesterol 58 >40 mg/dL Desirable HDL: greater than 40 mg/dL Note: This HDL assay may give artificially low results in patients with liver disease. PSA,Total (Free>4and<10) (No t yet reviewed by provider) Interpretation: Performing Lab:[address] [phone] Notes/Report: PSA,Total (Free>4and<10) 0.50 0.00-4.00 ng/mL A Free PSA was not [...] Immunoassay (CMIA) UA ClnCatch+Micro w/rflx Cul t (Not yet reviewed by provider) Interpretation: Performing Lab:[facility], [address] [place] [phone] Notes/Report: Urine, Clean Catch Color Urine Yellow Appearance Urine Clear PH 7.5 5.0-9.0 Glucose Urine UA Negative Negative mg/dL Urine Blood Negative Negative Specific [place] - Urine 1.015 1.005-1.025 Urine Protein Negative Neg-Trace mg/dL Urine Ketones Negative Negative mg/dL Nitrite Urine Negative Negative Leukocyte Esterase Urine Negative Negative RBC Urine 0-2 0-2 /HPF WBC Urine 0-5 0-5 /HPF Squamous Epithelial Cell Urine 0-2 0-2 /HPF Bacteria Urine None Seen None Seen Hyaline Casts Urine 0-2 0-2 /LPF REASON FOR VISIT yearly fasting labs Encounters Encounter Location Date Provider Diagnosis Lj Ledezma MD [address] [place] [address] [address] [place], [place] [phone] 02/09/2025 jL Ledezma Blood tests for routine general physical examination Z00.00 Assessments Encounter Date Diagnosis (ICD Code) Assessment Notes Treatment Notes Treatment Clinical Notes Section Notes 02/09/2025 Blood tests for routine general physical examination (ICD-10 - Z00.00) Plan Of Treatment Pending Test Test Name Order Date Complete Blood Count Auto Diff 5 Comprehensive [place]. Panel Fast 5 Lipid Panel 02/09/2025 PSA,Total (Free>4and<10) 02/09/2025 UA ClnCatch+Micro w/rflx Cult 02/09/2025 Next Appt Details Provider Name:Lj Butler ier, 02/15/2025 08:30:00 AM, [address] [place] [address], [address], [place], [place], [phone], Progress Notes * JOSEMELISSAHARISH DEMOND RDOB:12/1980 (44 yo M)Acc No.[id number]:02/09/2025 Progress Note Patient: DEMOND THOMAS Provider: Yancy Ledezma MD :1980 A ge:44 Y S ex:Male Date:02/09/2025 Address:[address] [place] [address], [place] [address] [id number] Subjective: * Chief Complaints: * 1 . Yearly fasting labs. * Medical History: Objective: * Vitals: Assessment: * Assessment: 1. B lood tests for routine general physical examination - Z00.00 (Primary) Plan: * Treatment: * Procedure Codes: 3 6415 VENIPUNCT, ROUTINE* * * The named appointment provid er may or may not be the originator of this progress note, and it is not deemed complete until electronically signed by the appointment provider. Sign off status: Pending * Provider: Yancy Ledezma MD Date: 1 04/11/2024 Generated for Eduard mcdonald/Hilda/Favio on: 1 04/11/2024 02:41 PM EST
[2025-02-09 12:32] LABS: MANUAL DIFF FLAG NO
[2025-02-09 13:15] LABS: Hematocrit 44.0 % (42.0-52.0); Hemoglobin 15.2 g/dl (14.0-18.0); Imm Gran Abs Auto 0.01 X10*3/uL (0.00-0.03); Imm Gran Pct Auto 0.2 % (0.0-0.4); Lymphocytes Absolute Auto 1.8 X10*3/uL (1.2-4.9); Mean Corpuscular HGB Conc 34.5 g/dl (31.0-36.0); Mean Corpuscular Hemoglobin 29.5 pg (27.0-33.0); Mean Corpuscular Volume 85.4 fL (80.0-98.0); NRBC Abs Auto 0.000 X10*3/uL (0.0-0.012); NRBC Pct Auto 0.0 /100WBC (0.0-0.2); Platelet Count 243 X10*3/uL (160-400); Red Blood Count 5.15 X10*6/uL (4.60-5.80); White Blood Count 6.3 X10*3/uL (4.8-10.8)
[2025-02-09 13:16] LABS: Appearance Urine Clear; Glucose Urine UA Negative (Negative); PH 7.5 (5.0-9.0); Specific Gravity - Urine 1.015 (1.005-1.025)
[2025-02-09 13:34] LABS: Alanine Aminotransferase 46 U/L (0-40); Albumin Level 4.5 g/dL (3.5-5.0); Alkaline Phosphatase 64 U/L (39-117); Anion Gap 11 (12-20); Aspartate Amino Transferase 36 U/L (5-37); Blood Urea Nitrogen 14 mg/dL (9-16); Calcium 9.1 mg/dL (8.4-10.2); Carbon Dioxide 29 mmol/L (22-29); Chloride 103 mmol/L (96-108); Cholesterol 201 mg/dL (<200); Estimated Glomerular Filt Rate > 60; HDL Cholesterol 58 mg/dL (>40); Potassium 4.4 mmol/L (3.3-5.1); Sodium 139 mmol/L (135-145); Total Protein 6.8 g/dL (6.5-8.0); Triglycerides 170 mg/dL (<150)
[2025-02-09 14:03] LABS: PSA,Total (Free>4and<10) 0.50 ng/mL (0.00-4.00)
--- OUTSIDE RECORDS SUMMARY | 2025-02-09 14:41 | XMS_ITS | Patient Health Record ---
Author Organization [facility] Address [address] [place] [address] Care Team Providers Care Key Person Name Role Phone Darien CAZARES, Lj Primary Care Provider Nathen An Unavailable [phone] Reason For Referral No Information Medications Medication SIG (Take, Route, Fr equency, Duration) Notes Start Date End Date Status Multivitamin Active valACYclovir HCl Act karon Advil PRN Active Immunizations Vaccine Route Administration Date Status Comme nts Influenza Unknown 03/13/2020 Refused Social History Tobacco Use: Social History Observation Description Date Details (start date - stop date) Never Smoker NA - NA Tobacco Use/Smoking Question Answer Notes Patient is a nonsmoker Alcohol Screen Question Answer Notes Did you have a drink contain ing alcohol in the past year? Yes How often did you have a dri nk containing alcohol in the past year? 2 to 3 times a week (3 points) How many drinks did you have on a typical day when you were drinking in the past year? 3 or 4 drinks (1 point) How often did you have 6 or more drinks on one occasion in the past year? Less than monthly (1 point) Points 5 Interpretation Positive Section Notes: Nonsmoker; no sig alcohol Problems Problem Type SNOMED Code ICD Code Onset Dates Problem Status W/U Status Risk Notes Problem Screening for malignant neoplasm of colon (946216160) Encounter for screening for malignant neoplasm of colon (Z12.11) Active confirmed Problem Preprocedural examination (725466641272753) Preprocedural examination (Z01.818) Active confirmed Problem Family History of Cancer of Colon (Situation) (030670877) Family history of colon cancer (Z80.0) Active confirmed Plan Of Treatment Future Test Test Name Order Date COLONOSCOPY 03/13/2020 Insurance Providers Payer Name Payer Address Payer Phone Subscriber Number Group Number Insured Name Patient Relationship to Insured Coverage Start Date Coverage End Date [facility] [address] [address] [place] [address] [id number] DEMOND [place] Self - patient is the insured Medical (General) History Medical History History ICD Code Hx of cold sores Denies AR,DM,CVA,Lung disease,renal dise ase Surgical History Surgery Date(Month/Year)
--- OUTSIDE RECORDS SUMMARY | 2025-02-09 14:41 | XMS_ITS | Patient Health Record ---
Author Organization Lj Ledezma MD Address [address] [place], [place] [id number] Care Team Providers Care Online Merchandising Manager Name Role Phone Lj Ledezma Primary Care Provider Allergies No Known Allergies Results Component Value Reference Range Notes Occult Blood, Stool, Guaiac Reviewed date:02/10/2024 11:27:52 AM Interpretation:Negative Performing Lab: Notes/Report: Negative Occult Blood, Stool, Guaiac Neg Complete Blood Count Auto Di ff (Not yet reviewed by provider) Interpretation: Performing Lab:[facility], [address] [place] [phone] Notes/Report: White Blood Count 6.3 4.8-10.8 X10*3/uL [...] NRBC Abs Auto 0.000 0.0-0.012 X10*3/uL Comprehensive [place]. Panel Fa st (Not yet reviewed by provider) Interpretation: Performing Lab:[facility], [address] [place] [phone] Notes/Report: Sodium 139 135-145 mmol/L Potassium 4.4 [...] 64 39-117 U/L Lipid Panel (Not yet review ed by provider) Interpretation: Performing Lab:[address] [phone] Notes/Report: Triglycerides 170 <150 mg/dL Desirable Triglyceride: [...] t yet reviewed by provider) Interpretation: Performing Lab:[address] [phone] Notes/Report: PSA,Total (Free>4and<10) 0.50 0.00-4.00 ng/mL A [...] (Not yet reviewed by provider) Interpretation: Performing Lab:[address] [phone] Notes/Report: Urine, Clean Catch Color Urine Yellow Appearance Urine Clear PH 7.5 5.0-9.0 Glucose Urine UA Negative Negative mg/dL Urine Blood Negative Negative Specific [place] - Urine 1.015 1.005-1.025 Urine Protein Negative Neg-Trace mg/dL Urine Ketones Negative Negative mg/dL Nitrite Urine Negative Negative Leukocyte Esterase Urine Negative Negative RBC Urine 0-2 0-2 /HPF WBC Urine 0-5 0-5 /HPF Squamous Epithelial Cell Urine 0-2 0-2 /HPF Bacteria Urine None Seen None Seen Hyaline Casts Urine 0-2 0-2 /LPF Reason For Referral No Information Medications Medication SIG (Take, Route, Fr equency, Duration) Notes Start Date End Date Status Drysol 20 % 1 application at bed time Externally daily until sweating stops for 30 days 01/19/2022 Activ e valACYclovir HCl 1 GM TAKE 2 TABLETS BY MOUTH EVERY 12 HOURS FOR 1 DAY for 1 Active Immunizations Vaccine Route Administration Date Status Comme nts SARS-COV-2 Pfizer Unknown 07/17/2020 Administered SARS-COV-2 Pfizer Unknown 08/13/2020 Administered Fluarix Quadrivalent Unknown 12/13/2017 Refused sonal ent refused Fluarix Quadrivalent Unknown 12/27/2018 Refused Fluarix Quadrivalent Unknown 01/11/2020 Refused Fluarix Quadrivalent Unknown 01/07/2021 Refused Fluarix Quadrivalent Unknown 01/14/2021 Refused Fluarix Quadrivalent Unknown 01/09/2022 Refused Fluarix Quadrivalent Unknown 01/25/2023 Refused Fluarix Quadrivalent - 150 Unknown 02/07/2024 Refused Social History Tobacco Use: Social History [...] Never (0 point) Points 1 Interpretation Negative Problems Problem Type SNOMED Code ICD Code Onset Dates Problem Status W/U Status Risk Notes Problem [id number] Family history of colon cancer in father (Z80.0) Active confirmed Vital Signs Blood pressure diastolic 72 mm Hg 02/10/2024 tiarra ght is down 2 pounds since 02-01-23 Height 71.5 in 02/10/2024 weight is down 2 pounds since 02-01-23 Blood pressure systolic 124 mm Hg 02/10/2024 weig ht is down 2 pounds since 02-01-23 Weight 192 lbs 02/10/2024 weight is down 2 pounds since 02-01-23 BMI 26.40 kg/m2 02/10/2024 weight is down 2 pounds since 02-01-23 Encounters Encounter Location Date Provider Diagnosis Lj Ledezma MD [address] [place] [phone] 02/10/2024 Lj Ledezma Annual physical exam Z00.00 ; Elevated blood sugar R73.9 ; Colon cancer screening Z12.11 and Depression screening Z13.31 Lj Ledezma MD [address] [place] [address] [phone] 02/09/2025 Lj Ledezma Blood tests for routine general physical examination Z00.00 Lj Ledezma MD [address] [place] [address] [phone] 04/07/2024 Lj Ledezma MD [address] [place] [address] [phone] 04/28/2024 Lj Ledezma Assessments Encounter Date Diagnosis (ICD Code) Assessment Notes Treatment Notes Treatment Clinical Notes Section Notes 02/10/2024 Annual physical exam (ICD-10 - Z00.00) labs reviewed and discused with patient 02/10/2024 Elevated blood sugar (ICD-10 - R73.9) maintain a good weioght and contiue with exercise 02/09/2025 Blood tests for routine general physical examination (ICD-10 - Z00.00) 02/10/2024 Colon cancer screening (ICD-10 - Z12.11) guaiac negative 02/10/2024 Depression screening (ICD-10 - Z13.31) negative screen Plan Of Treatment Pending Test Test Name Order Date Complete Blood Count Auto Diff Comprehensive [place]. Panel Fast Lipid Panel 02/09/2025 PSA,Total (Free>4and<10) 02/09/2025 UA ClnCatch+Micro w/rflx Cult 02/09/2025 Next Appt Details Provider Name:Lj Butler ier, 02/15/2025 08:30:00 AM, [address], [address], [place], [place], [phone], Insurance Providers Payer Name Payer Address Payer Phone Subscriber Number Group Number Insured Name Patient Relationship to Insured Coverage Start Date Coverage End Date [employer] [address] [place], [place] [id number] DEMOND [id number] Self - patient is the insured Medical (General) History Medical History History ICD Code Hx of Proteinuria (01/2020 Neg) Colonoscopy 05/06/[address] Vivian washington t 5 years
== END 2025-02-09 12:31 | disposition home or self-care (01) ==
LOC: HO.LNP 12:30
PROVIDERS: Visit Provider Internal Medicine
DX: Z00.00 Encounter for general adult medical examination without abnormal findings (principal); Z12.5 Encounter for screening for malignant neoplasm of prostate; Z13.6 Encounter for screening for cardiovascular disorders
CPT/HCPCS: 80053; 80061; 81001; 84153; 85025